=== PATIENT | male | born 1945 | race Two or more races ===

== ENCOUNTER 2018-12-10 15:40 | Emergency (ER) | payer OTHER ==
[~2018-12-10] VITALS: Ht 175.3 cm; Wt 68.0 kg
== END 2018-12-10 19:41 | disposition home or self-care (01) ==
LOC: ER 15:40
DX: S20.212A Contusion of left front wall of thorax, initial encounter (principal); W01.198A Fall on same level from slipping, tripping and stumbling with subsequent striking against other object, initial encounter; Y93.89 Activity, other specified; Y92.018 Other place in single-family (private) house as the place of occurrence of the external cause; Y99.8 Other external cause status

== ENCOUNTER 2021-02-14 15:39 | Outpatient (CLI) | payer OTHER | END 2021-02-14 15:49 | disposition home or self-care (01) | LOC: LAB 15:39 | PROVIDERS: ATTEND Radiology Diagnostic Radiology | DX: N20.0 Calculus of kidney (principal) ==

== ENCOUNTER 2021-02-27 07:29 | Outpatient (CLI) | payer OTHER | END 2021-02-27 07:44 | disposition home or self-care (01) | LOC: TOM 07:29 | PROVIDERS: ATTEND Internal Medicine Hematology & Oncology | DX: I10 Essential (primary) hypertension (principal); C22.1 Intrahepatic bile duct carcinoma; C78.02 Secondary malignant neoplasm of left lung; K51.90 Ulcerative colitis, unspecified, without complications; E11.8 Type 2 diabetes mellitus with unspecified complications | CPT/HCPCS: 71260; 74178; Q9965 ==